=== PATIENT | male | born 1965 | race Two or more races ===

== ENCOUNTER 2016-10-20 07:34 | Inpatient (IN) | payer MEDICAID ==
[2016-10-20 08:15] VITALS: BP 113/68
[2016-10-20] MEDS ORDERED: Hydrocodone/APAP 5mg/325mg Tab PO PRN (08:22)
[2016-10-20] MEDS ORDERED: Magnesium Hydroxide (MOM) 30 mL UDC PO PRN (08:22)
[2016-10-20 08:54] LABS: HEMATOCRIT 45.5 % (39.0-49.0); HEMOGLOBIN 15.3 gm/dL (13.2-17.3); MEAN CELL VOLUME 88.1 fl (80-99); MEAN CORPUSCULAR HEMOGLOBIN 29.7 pg (26.0-30.0); MEAN CORPUSCULAR HGB CONC 33.7 pg (28.0-36.0); MEAN PLATELET VOLUME 7.8 fl; PLATELET COUNT 229 Th/cmm (150-400); RED BLOOD COUNT 5.16 Mil/cmm (4.30-5.70); RED CELL DISTRIBUTION WIDTH 12.6 % (11.5-20.0); WHITE BLOOD COUNT 9.5 Th/cmm (4.8-10.8)
[2016-10-20] MEDS ORDERED: Maalox 30 mL Cup PO PRN (09:00)
[2016-10-20] MEDS: D5-0.9%NS 1,000 ML IV SCH ×2 (09:07→22:03)
[2016-10-20] MEDS: Hydrocodone/APAP 10 mg/325 mg Tab PO PRN (09:09)
[2016-10-20 09:11] LABS: ALB/GLOB RATIO 1.5 (1.0-1.8); ALKALINE PHOSPHATASE 72 U/L (34-104); ANION GAP 13.2 (7.0-16.0); BILIRUBIN,TOTAL 0.6 mg/dL (0.3-1.0); BUN - UREA NITROGEN 14 mg/dL (7-25); BUN/CREATININE RATIO 17.5; CALCIUM SERUM 9.4 mg/dL (8.6-10.3); CARBON DIOXIDE 27.8 mEq/L (21.0-31.0); CHLORIDE 100 mEq/L (98-107); CREATININE - SERUM 0.8 mg/dL (0.7-1.3); GLUCOSE 149 mg/dL (70-105); SGOT 14 U/L (13-39); SGPT/ALT 14 U/L (7-52); SODIUM SERUM 137 mEq/L (136-145)
[2016-10-20 09:39] LABS: BAND NEUTROPHILE 3 % (0-10); EOSINOPHIL 1 % (0-5); NEUTROPHILS 83 % (40-80); PLATELET ESTIMATE ADEQUATE (NORMAL); PLATELET MORPHOLOGY NORMAL (NORMAL); TOTAL CELLS COUNTED 100
[2016-10-20] MEDS: Morphine Sulfate 2 mg/mL 1mL Syr IVP PRN ×2 (11:29→22:01)
[2016-10-20] MEDS: methylPREDNISolone SS 40 mg Vial IVP SCH ×3 (11:30→23:45)
[2016-10-20] MEDS: Albuterol Nebulizer 2.5mg/3mL HHN PRN ×2 (11:49→23:57)
[2016-10-20] MEDS: Ipratropium Neb 0.5 mg/2.5 mL UD HHN PRN ×2 (11:50→23:58)
[2016-10-20 13:27] LABS: URINE BILIRUBIN NEGATIVE (NEGATIVE); URINE COLOR YELLOW; URINE GLUCOSE (UA) 250 mg/dL (NEGATIVE); URINE KETONE NEGATIVE (NEGATIVE)
[2016-10-20 13:28] LABS: URINE BLOOD NEGATIVE (NEGATIVE); URINE PROTEIN NEGATIVE (NEGATIVE); URINE UROBILINOGEN 0.2 E.U./dL (0.2 - 1.0)
[2016-10-20 13:32] LABS: URINE RBC NONE SEEN /hpf (0-5)
[2016-10-20 13:33] LABS: URINE BACTERIA NONE SEEN /hpf (NONE SEEN); URINE EPITHELIAL CELLS OCCASIONAL /lpf (FEW); URINE WBC 0-2 /hpf (0-5)
[2016-10-20] MEDS ORDERED: Pneumococcal Vaccine 0.5 mL Vial IM ONE (17:00)
[2016-10-20] MEDS ORDERED: methylPREDNISolone SS 40 mg Vial IV SCH (18:00)
[2016-10-20] MEDS: Pantoprazole 40 mg/Packet PO SCH (18:24)
[2016-10-20] MEDS: Guaifenesin DM 10 ML UDC PO PRN ×2 (18:25→23:45)
[2016-10-20] MEDS: Albuterol/Ipratropium Neb 3 ML AERS HHN SCH (19:17)
[2016-10-20] MEDS: Budesonide 0.5 Mg/2 mL Ud HHN SCH (19:17)
--- NOTE | 2016-10-21 00:51 | Consultation ---
HISTORY OF PRESENT ILLNESS: This patient is seen on courtesy of Dr. Christ Quevedo as the patient is having chest pain. He says that he has a history of coronary artery disease, status post coronary artery bypass surgery done about 10 years ago and has bronchial asthma. The bronchial asthma was seen in urgent care about a week ago, but given some medications. He felt a little bit better, but it got worse again, so came to the Emergency Room at [facility] and from there he has been transferred here. He says that he has been having the chest pain all over both sides of the lungs and it has aggravated with cough. He has no chest pain on rest or moving or any position or swallowing or eating, but it comes only with cough or deep breathing. Denies of any nausea, vomiting, dizziness, palpitation or abdominal pain and no diarrhea. No fever, chills and rigors. He said his chest pain is totally different than his cardiac pain, which he had before the bypass surgery. PAST MEDICAL HISTORY: He has history of hypertension, hypertensive heart disease, dyslipidemia, coronary artery disease, status post coronary artery bypass surgery and has history of myocardial infarction and bronchial asthma. ALLERGIES: No known drug allergies. MEDICATIONS: Reviewed. REVIEW OF SYSTEMS: Nothing contributory. PERSONAL HISTORY: He is nonsmoker and nonalcoholic, no drug abuse. PHYSICAL EXAMINATION: GENERAL: He is a 51-year-old male fully alert and oriented with wheezing and coughing a lot during my examination. VITAL SIGNS: Temperature is normal, respiration is 20, heart rate 76, blood pressure 126/62 and O2 sat is 95% on 2 liters by nasal cannula. HEENT: Normal. NECK: Supple. JVP is flat. No lymphadenopathy. CHEST: Equal bilaterally and the chest wall tenderness is present on both sides especially in the back area. LUNGS: Decreased air entry bilaterally and has expiratory rhonchi. CARDIOVASCULAR SYSTEM: PMI not palpable. Heart sounds are normal. No gallop or murmur is appreciated. No rubs. Otherwise, physical examination is essentially negative. EXTREMITIES: No edema and no cyanosis. Peripheral pulsations are equal bilaterally. LABORATORY DATA: Lab work is showing that the CBC is normal. His chem-12 is normal except glucose slightly elevated. Troponin is normal. IMPRESSION: Chest pain, atypical and is not from the cardiac etiology. Most likely it is secondary to musculoskeletal pain secondary to acute exacerbation of bronchial asthma with cough. Respiratory distress secondary to acute aggravation of bronchial asthma and history of coronary artery disease, post coronary bypass surgery and hypertension, history of myocardial infarction and dyslipidemia. PLAN: Continue with serial CPK and troponin as there is only one being done. Will also get an EKG and echocardiogram to evaluate LV function and valvular function. Control cough and chest pain. Further workup and management will be initiated as needed. Thank you very much, Christ for your kind referral and I will follow along with you during his acute problem. JOB# [id number] LAINA
[2016-10-21] MEDS: Guaifenesin DM 10 ML UDC PO PRN ×3 (03:54→23:21)
[2016-10-21] MEDS: Morphine Sulfate 2 mg/mL 1mL Syr IVP PRN ×5 (03:54→23:21)
[2016-10-21 05:49] LABS: % BASOPHILS 2.4 % (0.0-2.0); % EOSINOPHILS 0.1 % (0.0-5.0); % LYMPHOCYTES 10.6 % (20.0-50.0); % MONOCYTES 4.8 % (2.0-10.0); % NEUTROPHILS 82.1 % (40.0-80.0); HEMOGLOBIN 13.9 gm/dL (13.2-17.3); MEAN CELL VOLUME 87.5 fl (80-99); MEAN CORPUSCULAR HGB CONC 34.3 pg (28.0-36.0); MEAN PLATELET VOLUME 7.9 fl; NEUTROPHILE ABSOLUTE 11.2 Th/cmm (1.8-8.0); PLATELET COUNT 206 Th/cmm (150-400); RED BLOOD COUNT 4.61 Mil/cmm (4.30-5.70); RED CELL DISTRIBUTION WIDTH 12.5 % (11.5-20.0)
[2016-10-21 05:55] LABS: HEMATOCRIT 40.4 % (39.0-49.0); WHITE BLOOD COUNT 13.6 Th/cmm (4.8-10.8)
--- NOTE | 2016-10-21 06:02 | Progress Notes ---
REASON FOR CONSULTATION: Acute bronchial asthma. CONSULT NOTE: This is a 51 years old gentleman, nonsmoker, history of chronic bronchial asthma with also strong family history of bronchial asthma, started having coughing and wheezing for last few days with some chills and fever. Subsequently, the patient did go to the local hospital and because of insurance reason, the patient was moved up here for further care and necessary treatment. The patient did have a lot of coughing, some productive sputum, occasionally discolored; does not ____ definitely had high grade fever except for the chills. No pleuritic chest pain and denies of any swelling of the legs, PND, orthopnea, etc., and using Ventolin for his treatment. PAST MEDICAL HISTORY: 1. Hypertension. 2. Coronary artery disease, bypass surgery. 3. History of dyslipoproteinemia. ALLERGIES: None to medications, but lot of ____ specific allergens. 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 FAMILY HISTORY: Positive for bronchial asthma son has bronchial asthma, and no specific allergens but he may be allergic to multiple things. PHYSICAL EXAMINATION: GENERAL: This is an elderly looking gentleman, awake, alert, and oriented, lot of coughing at my exam, but not in any acute distress. RECORDED VITAL SIGNS: The patient's temperature is 97.5, blood pressure 113/68 and saturation 96 on 2 liters of oxygen. HEENT: Examination of the head is essentially unremarkable. Pupils appear to be equal and reactive to light. Conjunctivae are slightly pallor. Oral cavity shows small oropharyngeal opening. NECK: No nodes in the neck could be palpated. CHEST: Shows previous surgical scar with marked diminished air entry with scattered wheezing. HEART: Regular. ABDOMEN: Soft, nontender. EXTREMITIES: Shows no peripheral edema. LABORATORY DATA: The patient's chest x-ray is not available which was done at [place], and also patient's laboratory studies, white count is 9.5, hemoglobin 15.3, lymphocytes 12, sugar is 149. IMPRESSION: 1. The patient has an acute exacerbation of chronic bronchial asthma. 2. Status post coronary artery disease. 3. Suspect obstructive sleep apnea syndrome. PLANS AND SUGGESTIONS: We will give aggressive inhalation treatment with steroids and a beta-agonist; we will give systemic steroids; we will add montelukast, we will add Protonix and see how he does in next 24-48 hours and go from there. Please note that we will go empirically ____ Tamiflu as well after getting influenza screening. JOB# [id number]
[2016-10-21 06:09] LABS: ANION GAP 10.1 (7.0-16.0); BUN - UREA NITROGEN 13 mg/dL (7-25); BUN/CREATININE RATIO 18.6; CALCIUM SERUM 8.9 mg/dL (8.6-10.3); CHLORIDE 105 mEq/L (98-107); CREATININE - SERUM 0.7 mg/dL (0.7-1.3); GLUCOSE 188 mg/dL (70-105); POTASSIUM SERUM 4.1 mEq/L (3.5-5.1); SODIUM SERUM 137 mEq/L (136-145)
[2016-10-21] MEDS: methylPREDNISolone SS 40 mg Vial IVP SCH ×4 (06:39→23:21)
--- NOTE | 2016-10-21 06:56 | Admit Criteria Form ---
Admit Criteria Forms - Admit Criteria Diagnosis: ASTHMA Clinical Indications for Admission to Inpatient Care (Place 'X' for any and all applicable criteria): Admission is indicated for ANY ONE of the following (1)(2)(3)(4)(5): [ ]I. Absent or markedly diminished breath sounds (silent chest) [ ]II. Oxygen saturation < 92% [ ]III. PaCO2 = / > 42 mm Hg (5.6 kPa) [ ]IV. Peak expiratory flow rate < 40% of predicted or personal best after treatment. [ ]V. Peak expiratory flow rate < 33% of predicted or personal before after treatment [ ]. Change in mental status [ ]VII. Ventilatory support required [ ]VIII. PaO2 < 60 mm Hg (8.0 kPa) [ ]IX. Cyanosis [ ]X. Cardiac dysrhythmia (e.g., bradycardia) [ ]XI. Hemodynamic instability [ ]XII. Radiographic evidence of complication requiring inpatient treatment (e.g., pneumonia, pneumothorax) [X]XIII. Inpatient admission required rather than observation care (also use Asthma: Observation Care guideline as appropriate) because of ANY ONE of the following: [ ]a) Respiratory finding that is severe or persistent (eg, dyspnea, tachypnea, accessory muscle use) [ ]b) Airflow measurements less than 60% of predicted or personal best that persist (e.g., over 24 hours) or worsen despite treatments [X]c) Supplemental oxygen or respiratory treatments for over 24 hours that are performable only in acute inpatient setting [ ]d) Other condition, treatment or monitoring requiring inpatient admission. Extended stay beyond goal length of stay may be needed for (26)(27)(28): [ ]a) Severe respiratory failure (23) (29) (30) [ ]b) Secondary causes and complications (25) [ ]c) Status asthmaticus [ ]d) Chronic obstructive asthma [ ]e) Older patients (29) [ ]f) Slow resolution [ ]g) Clinically significant exacerbation of comorbidities (eg, alexandra. heart failure, atrial fibrillation) The original [facility] content created by [facility] [employer] has been revised. The portions of the content which have been revised are identified through the use of italic text or in bold, and [facility] [employer] has neither reviewed nor approved the modified material. All other unmodified content is copyright [facility] Please see references footnoted in the original [facility] edition 2016 Admit Criteria Met?: Yes
[2016-10-21] MEDS: Budesonide 0.5 Mg/2 mL Ud HHN SCH ×2 (07:44→20:06)
[2016-10-21] MEDS: Albuterol/Ipratropium Neb 3 ML AERS HHN SCH ×4 (07:44→20:06)
[2016-10-21] MEDS: Pantoprazole 40 mg/Packet PO SCH (09:04)
[2016-10-21 10:20] LABS: ABG SOURCE Arterial; ALLEN TEST Positive; FIO2 21; HCO3 26.5 mEq/L (20.0-26.0); pH 7.43 (7.35-7.45)
--- NOTE | 2016-10-21 10:28 | Diagnostic Imaging Report ---
Chest 2 views INDICATION: Shortness of breath cough COMPARISON: None FINDINGS: Is evidence of prior median sternotomy. No focal consolidation or pleural effusions. Mild increased interstitial lung markings are noted. Heart size is normal. Degenerative changes of the spine are noted. IMPRESSION: Mild increased interstitial lung markings favoring chronic lung changes. No evidence of focal consolidation or juhi CHF Evidence of prior median sternotomy.
[2016-10-21] MEDS: D5-0.9%NS 1,000 ML IV SCH ×2 (10:44→21:26)
[2016-10-21] MEDS: Hydrocodone/APAP 10 mg/325 mg Tab PO PRN (21:20)
--- NOTE | 2016-10-21 22:17 | Progress Notes ---
PROBLEM LIST: 1. Acute bronchial asthma, possibly viral. 2. Status post coronary artery bypass surgery. 3. Suspect sleep apnea syndrome and also gastroesophageal reflux disease. SYMPTOMS: The patient is feeling a little better, still coughing, but much less than before. No respiratory distress, etc. PHYSICAL EXAMINATION: VITAL SIGNS: Temperature is 98.4, blood pressure 111/60, ____pulse 44, saturation 99% on 2 liters. NECK: Neck veins could not be visualized. CHEST: Shows occasional rhonchi with diminished air entry with some wheezing. HEART: Regular. ABDOMEN: Soft, nontender. LABORATORY DATA: White count is 13.6. ABG, pO2 is 68 at room air and electrolytes are okay. ASSESSMENT: The patient clinically may be little better with asthmatic bronchitis with underlying history of coronary artery disease, dyslipoproteinemia, I suspect obstructive sleep apnea syndrome. PLANS AND SUGGESTIONS: We will go ahead and continue IV steroid, inhale steroid bronchodilator. Hopefully, in next 24-48 hours if stable, may consider discharging and go from there. JOB# [id number]
[2016-10-21] MEDS: Albuterol Nebulizer 2.5mg/3mL HHN PRN (23:37)
[2016-10-21] MEDS: Ipratropium Neb 0.5 mg/2.5 mL UD HHN PRN (23:37)
[2016-10-22 05:47] LABS: % BASOPHILS 0.1 % (0.0-2.0); % EOSINOPHILS 0.2 % (0.0-5.0); % LYMPHOCYTES 10.2 % (20.0-50.0); % MONOCYTES 4.9 % (2.0-10.0); % NEUTROPHILS 84.6 % (40.0-80.0); HEMATOCRIT 39.2 % (39.0-49.0); HEMOGLOBIN 13.7 gm/dL (13.2-17.3); MEAN CELL VOLUME 87.8 fl (80-99); MEAN CORPUSCULAR HEMOGLOBIN 30.7 pg (26.0-30.0); MEAN PLATELET VOLUME 8.2 fl; NEUTROPHILE ABSOLUTE 12.1 Th/cmm (1.8-8.0); PLATELET COUNT 219 Th/cmm (150-400); RED BLOOD COUNT 4.47 Mil/cmm (4.30-5.70); RED CELL DISTRIBUTION WIDTH 12.6 % (11.5-20.0)
[2016-10-22 05:59] LABS: WHITE BLOOD COUNT 14.2 Th/cmm (4.8-10.8)
[2016-10-22 06:22] LABS: BUN - UREA NITROGEN 14 mg/dL (7-25); CALCIUM SERUM 8.8 mg/dL (8.6-10.3); CARBON DIOXIDE 27.8 mEq/L (21.0-31.0); CHLORIDE 106 mEq/L (98-107); CREATININE - SERUM 0.7 mg/dL (0.7-1.3); GLUCOSE 161 mg/dL (70-105); POTASSIUM SERUM 3.8 mEq/L (3.5-5.1); SODIUM SERUM 137 mEq/L (136-145)
[2016-10-22] MEDS: methylPREDNISolone SS 40 mg Vial IVP SCH ×3 (06:31→17:03)
[2016-10-22] MEDS: Morphine Sulfate 2 mg/mL 1mL Syr IVP PRN ×3 (06:41→17:42)
[2016-10-22] MEDS: Albuterol/Ipratropium Neb 3 ML AERS HHN SCH ×4 (08:04→19:07)
[2016-10-22] MEDS: Budesonide 0.5 Mg/2 mL Ud HHN SCH ×2 (08:04→19:07)
[2016-10-22] MEDS: Pantoprazole 40 mg/Packet PO SCH (09:29)
--- NOTE | 2016-10-22 09:57 | Progress Notes ---
SUBJECTIVE: The patient is awake and alert. The patient is on oxygen nasal cannula. The patient receiving inpatient neb treatment. The patient is on IV steroids. The patient is on IV fluids. OBJECTIVE: VITAL SIGNS: Temperature 98, pulse 60, blood pressure per nursing, respiratory 18, O2 saturation is 97% on 2 liters nasal cannula. CARDIOVASCULAR: S1 and S2. RESPIRATORY: Wheezing. GASTROINTESTINAL: Soft. Positive bowel sounds. LABORATORY DATA: Hematology, WBC 13.6, hemoglobin is 13.9, hematocrit 40.4, platelet count of 206, 82% neutrophils, 10% lymphocytes. ABG is pH of 7.4, pCO2 of 40, pO2 of 68, bicarbonate 26. Chemistries: Sodium 137, potassium 4.1, chloride 105, bicarbonate 26, anion gap 10, BUN 13, creatinine 0.7, GFR is more than 60, glucose is 188, hemoglobin A1c is 5.5, calcium 8.9. Troponin is 0.01. Influenza test is negative. MICROBIOLOGY: Blood culture from October 20, pending. Radiology: Chest x-ray from October 21, shows mild increased interstitial marking. No evidence of focal consolidation or juhi CHF. ASSESSMENT: 1. Respiratory failure, acute. 2. Hypertension. 3. Coronary artery disease. 4. Status post coronary artery bypass graft. 5. Dyslipidemia. 6. Chronic obstructive pulmonary disease exacerbation. PLAN: Continue current medications and treatment. Obtain labs in a.m. Continue the patient on inpatient neb treatment. Continue weaning from oxygenation. Continue weaning from IV steroids. Further recommendations per consultations. JOB# [id number] [facility]
[2016-10-22] MEDS: Guaifenesin DM 10 ML UDC PO PRN ×2 (11:00→17:42)
[2016-10-22] MEDS: D5-0.9%NS 1,000 ML IV SCH (11:06)
[2016-10-22] MEDS ORDERED: Codeine /Guaifenesin 10 mL UDC PO PRN (19:55)
--- NOTE | 2016-10-22 21:01 | Progress Notes ---
PULMONARY PROGRESS NOTE PROBLEM LIST: 1. Acute asthmatic bronchitis. 2. Coronary bypass surgery with suspected obstructive sleep apnea syndrome. SYMPTOMS: The patient is still coughing, still wheezing, is not feeling comfortable, and still not significant sputum production. PHYSICAL EXAMINATION: VITAL SIGNS: Temperature is 97.0, blood pressure 111/50, and saturation 99 on 2 liters of oxygen. ENT: Shows no new changes. CHEST: Shows scattered wheezing with marked diminished air entry. HEART: Regular. EXTREMITIES: Shows no peripheral edema. ASSESSMENT: The patient still has a significant bronchospasm with a lot of coughing. PLANS AND SUGGESTIONS: 1. We will give increased inhaled steroid and see how he does. 2. We will give some Robitussin with Codeine and go from there. Continue IV steroid, other inhalation treatment, etc., and go from there. JOB# [id number]
[2016-10-23] MEDS ORDERED: Budesonide 0.5 Mg/2 mL Ud HHN SCH (07:00)
--- NOTE | 2016-11-04 22:34 | Discharge Summary ---
DISCHARGE DIAGNOSES: 1. Respiratory failure (acute). 2. Hypertension. 3. Coronary artery disease, status post coronary artery bypass grafting. 4. Chronic obstructive pulmonary disease acute exacerbation. HOSPITAL COURSE: The patient is a 51-year-old male who was admitted with diagnosis of respiratory failure, acute; COPD exacerbation, hyperglycemia, hypertension, hyperlipidemia, asthma, history of CABG. The patient was admitted to telemetry unit. Consultation obtained were cardiology consultation with Dr. Prakash Quevedo who recommended the patient being atypical and not from cardiac etiology. Recommend continue with serial cardiac enzymes. The patient ordered for EKG and echocardiogram. Pulmonary consultation obtained from Dr. Rick Ferguson, who recommended the patient inpatient nebulizer treatment. The patient was also placed on IV steroids. The patient was also ordered on Singulair and Protonix. The patient showed improvement with IV steroids treatment. The patient left AMA on 10/23/2016. [facility]# [id number] MTDD
--- NOTE | 2016-11-12 12:19 | Cardiology ---
PROCEDURE: Echocardiogram. REFERRING PHYSICIAN: Christ Quevedo M.D. M-mode measurements are follows. The aortic root in end-diastole is 3.2 cm. Aortic valve systolic separation is 2.0 cm. Left atrial dimension in end-systole is 3.1 cm. EP septal separation is 0.64 cm. Mitral valve E/A ratio is 1.28. LV dimension in end-diastole is 5.5 cm and in end-systole is 3.4 cm with ejection fraction of 55%. Interventricular septal thickness in end-diastole is 1.2 cm and LV posterior wall thickness in end-diastole is 0.9 cm. Doppler and carotid Doppler shows that there is trace of tricuspid and pulmonic regurgitation. The aortic valve Vmax is 1.37 m/sec and aortic valve pressure gradient is 7.5 mmHg. Aortic valve area is 3.5 cm2. Left ventricular outflow tract Vmax is 1.19 m/sec. M-mode and 2D show that LV dimension and wall motion are normal. No pericardial effusion is present. All the valves are normal in thickness and motion in end-diastole as well as in end-systole. All the chambers are normal in dimension. Doppler and carotid Doppler confirms the findings as mentioned above. CONCLUSION: 1. LV dimension and wall motion are normal with ejection fraction of 55%. 2. Normal study for the age. JOB# [id number] [facility]ITAL[facility]
--- NOTE | 2016-12-03 09:41 | History & Physical ---
ADMIT DATE: 10/20/2016 CHIEF COMPLAINT: Shortness of breath. HISTORY OF PRESENT ILLNESS: The patient is a 51-year-old male with history of asthma and acute myocardial infarction. The patient presented with cough, rhinorrhea, fever, and chest pain. The patient denies of leg pain, swelling, paroxysmal nocturnal dyspnea or orthopnea. The patient denies any vomiting, diarrhea, or rash. The patient is still complaining of headaches and myalgia. The patient has been transferred from [facility]. PAST MEDICAL HISTORY: Hypertension, hyperlipidemia, asthma, acute myocardial infarction. PAST SURGICAL HISTORY: CABG. ALLERGIES: No known allergies. MEDICATIONS: See medication reconciliation form. SOCIAL HISTORY: No reports of smoking, drinking or drug use. REVIEW OF SYSTEMS: See history of present illness. PHYSICAL EXAMINATION: VITAL SIGNS: On admission, temperature 97.5, pulse 65, pulse 113/68, respiration 18, and O2 sat was 96% on 2 L nasal cannula. GENERAL: The patient is awake, alert, nontoxic in appearance. HEENT: Normocephalic and atraumatic. Extraocular movements intact. Oropharynx clear. NECK: Supple. No thyromegaly. No lymphadenopathy. RESPIRATORY: Wheezing present. No rhonchi or rales. CARDIOVASCULAR: S1, S2. Positive chest pain. No murmurs, rubs, or gallops. GASTROINTESTINAL: Soft and nontender. Positive bowel sounds. GENITOURINARY: No CVA tenderness, no suprapubic tenderness. BACK: No midline tenderness. EXTREMITIES: Equal pulses bilaterally. No cyanosis, clubbing, or edema. SKIN: Negative. PSYCHIATRIC: Negative. NEUROLOGIC: Cranial nerves II-XII intact. Extraocular movements intact. Sensation intact. Neurovascular intact. Bilateral muscles grossly normal. LABORATORY DATA: As follows: Hematology: WBC is 9.5, hemoglobin 15.3, hematocrit per labs, and platelet count per labs. And 86% neutrophils, 12% lymphocytes, 1% monocytes. Chemistry: Sodium 137, potassium 4.0, chloride 100 bicarbonate 27, anion gap 13, BUN 14, creatinine 0.8, GFR is more than 60. Glucose per labs, calcium is 9.4, total bilirubin 0.6, AST 14. ALT 14. Alk phos 72. Creatinine kinase 76. Troponin 0.01. Total protein 7.0, albumin 4.2, and globulin 2.8. Urinalysis seen. IMPRESSION: 1. Respiratory failure (acute). 2. Chronic obstructive pulmonary disease exacerbation. 3. Hyperglycemia. 4. Hypertension. 5. Hyperlipidemia. 6. Asthma. 7. History of acute myocardial infarction. 8. History of coronary artery bypass graft. PLAN: The patient will be admitted to telemetry unit and seen by Dr. Aliza Quevedo. We will obtain further labs and consultation as needed. [facility]# [id number] [facility]
== END 2016-10-22 20:55 | disposition left against medical advice (07) | DRG 133 ==
LOC: TELE 07:34
PROVIDERS: ADMIT Preventive Medicine Preventive Medicine/Occupational Environmental Medicine; ATTEND Preventive Medicine Preventive Medicine/Occupational Environmental Medicine
DX: J96.00 Acute respiratory failure, unspecified whether with hypoxia or hypercapnia (principal); J44.0 Chronic obstructive pulmonary disease with (acute) lower respiratory infection; E72.51 Non-ketotic hyperglycinemia; J45.901 Unspecified asthma with (acute) exacerbation; J44.1 Chronic obstructive pulmonary disease with (acute) exacerbation; I11.9 Hypertensive heart disease without heart failure; I25.10 Atherosclerotic heart disease of native coronary artery without angina pectoris; I25.2 Old myocardial infarction; E78.5 Hyperlipidemia, unspecified; R73.9 Hyperglycemia, unspecified; R07.89 Other chest pain; J20.9 Acute bronchitis, unspecified; Z95.1 Presence of aortocoronary bypass graft
CPT/HCPCS: 36415-UA; 36600-90; 71020-TC; 80048-TC; 80053-TC; 81001-TC; 82550-TC; 82803-TC; 83036-90; 84484-TC; 85007-TC; 85025-TC; 85027-TC; 87070; 87804-TC; 90732; 90779; 93005; 94760; J2270; J2920; J7042; J7613; Z7610